=== PATIENT | male | born 1995 | race American Indian/Alaskan Native ===

== ENCOUNTER 2018-07-11 22:18 | Emergency (ER) | payer OTHER ==
[2018-07-11] MEDS ORDERED: NACL 0.9% IR ONE (22:20)
[2018-07-11] MEDS ORDERED: TRIPLE ANTIBIOTIC TP ONE (22:20)
[2018-07-11] MEDS ORDERED: IBUPROFEN PO ONE (22:20)
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
[2018-07-11 22:27] VITALS: BP 126/73
[2018-07-12] MEDS ORDERED: TRIPLE ANTIBIOTIC TP ONE ×2 (00:30→02:44)
[2018-07-12] MEDS ORDERED: IBUPROFEN PO ONE (00:30)
[2018-07-12] MEDS ORDERED: NACL 0.9% 500 ML IR ONE (00:31)
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
[2018-07-12] MEDS ORDERED: XYLOCAINE 1% MPF 5 mL ONE (01:44)
== END 2018-07-12 03:10 | disposition home or self-care (01) ==
LOC: ED 22:18
DX: S41.011A Laceration without foreign body of right shoulder, initial encounter (principal); S51.811A Laceration without foreign body of right forearm, initial encounter; F17.200 Nicotine dependence, unspecified, uncomplicated; V57.5XXA Driver of pick-up truck or van injured in collision with fixed or stationary object in traffic accident, initial encounter; Y93.89 Activity, other specified; Y92.488 Other paved roadways as the place of occurrence of the external cause; Y99.8 Other external cause status
CPT/HCPCS: 99283; A6250